=== PATIENT | female | born 1945 | race Caucasian/White ===

== ENCOUNTER → 2020-03-24 | Outpatient (CLI) | payer MEDICARE ==
--- NOTE | 2020-03-24 15:59 | Diagnostic Imaging Report ---
EXAMINATION: SP LUMBAR AP LATERAL 2-3VWS INDICATION: Back pain COMPARISON: None FINDINGS: AP and lateral views of the lumbar spine were obtained. No compression fracture. Vertebral body heights are maintained. Dextroconvex curvature of the lumbar spine. Prominent multilevel degenerative changes with disc space narrowing, osteophyte formation, and facet arthropathy. Nonobstructive bowel gas pattern. No free air. Atherosclerotic arterial calcifications. Phleboliths in the pelvis. IMPRESSION: No compression fracture. Dextroconvex curvature of the lumbar spine and prominent multilevel degenerative changes. Signed by: Ingrid Wiggins MD on 03/24/2020 3:55 PM
== END ==
LOC: RAD 14:37
PROVIDERS: ATTEND Family Medicine
DX: M54.40 Lumbago with sciatica, unspecified side (principal)
CPT/HCPCS: 72100